=== PATIENT | female | born 1955 | race Caucasian/White ===

== ENCOUNTER 2021-01-06 18:41 | Inpatient (IN) | payer MEDICARE, OTHER ==
[~2021-01-06] VITALS: Ht 160 cm; Wt 97.4 kg
[~2021-01-06 18:41] MED LIST: ASPIRIN CHEWABL81 MG PO; BENTYL 10MG CAP10 MG PO; CELEXA20 MG PO; EFFEXOR 25 MG T25 MG PO; FEOSOL325 MG PO; FISH OIL 1,0001 EAC1 PO; GLUCOPHAGE XR500 MG PO; K-DUR TAB 10 M10 MEQ PO; LOPRESSOR 25 MG25 MG PO; MAGOX 400400 MG PO; NEURONTIN 300300 MG PO; NORFLEX 100 MG100 MG PO; OMEPRAZOLE20 MG PO; PHENERGAN 12.12.5 M1 PO; TOPAMAX50 MG PO; Voltaren Gel 1% TOP; ZANAFLEX4 MG PO; ZOCOR40 MG PO
[2021-01-06 19:27] LABS: HEMOGLOBIN 14.1 gm/dl (12.3-15.3); RED BLOOD COUNT 4.64 M/UL (4.00-5.10); WHITE BLOOD COUNT 8.4 K/UL (4.5-11.0)
[2021-01-06 20:32] LABS: BUN/CREATININE RATIO 27 (0-10)
[2021-01-07] MEDS ORDERED: MOBIC7.5 MG PO (01:28)
[2021-01-07] MEDS ORDERED: PROTONIX 40 MG40 M1 PO (01:29)
[2021-01-07] MEDS ORDERED: ONDANSETRON HCL8 MG PO (01:30)
[2021-01-07] MEDS ORDERED: ROPINIROLE HCL1 MG PO (01:31)
[2021-01-07] MEDS ORDERED: BANOPHEN25 M1 PO (01:33)
[2021-01-07] MEDS ORDERED: MI-ACID80 MG PO (01:35)
[2021-01-07] MEDS ORDERED: GLUCOTROL 10 MG10 MG PO (01:38)
[2021-01-07] MEDS ORDERED: VENLAFAXINE HCL50 MG PO (01:41)
[2021-01-07] MEDS ORDERED: TRULICITY1.5 MG/0.5 SQ (01:42)
[2021-01-07] MEDS ORDERED: GABAPENTIN800 MG PO (01:43)
[2021-01-07] MEDS ORDERED: LINZESS290 MCG PO (01:44)
[2021-01-07 05:51] LABS: HEMOGLOBIN 12.4 gm/dl (12.3-15.3)
[2021-01-07 05:53] LABS: RED BLOOD COUNT 4.09 M/UL (4.00-5.10); WHITE BLOOD COUNT 5.2 K/UL (4.5-11.0)
[2021-01-07 06:34] LABS: BUN/CREATININE RATIO 32 (0-10)
[2021-01-08 09:36] LABS: BUN/CREATININE RATIO 33 (0-10)
[2021-01-08 10:54] LABS: HEMOGLOBIN 11.2 gm/dl (12.3-15.3); RED BLOOD COUNT 3.82 M/UL (4.00-5.10)
[2021-01-08 10:55] LABS: WHITE BLOOD COUNT 11.6 K/UL (4.5-11.0)
[2021-01-09 08:34] LABS: HEMOGLOBIN 12.1 gm/dl (12.3-15.3); RED BLOOD COUNT 4.03 M/UL (4.00-5.10); WHITE BLOOD COUNT 12.6 K/UL (4.5-11.0)
[2021-01-09 08:58] LABS: BUN/CREATININE RATIO 47 (0-10)
--- NOTE | 2021-01-10 02:35 | NUR ---
01-10-21 DR. CORDERO WAS NOTIFIED OF PT'S SATS STAYING IN THE 80'S DESPITE BEING ON 100 PERCENT ON BIPAP. ABG WAS OBTAINED WELL AND THOSE RESULTS WERE RELAYED TO DR. Mahoney AT TIME OF PHONE CALL. ORDERED SOME CHANGES REGARGING BIPAP SETTINGS BUT SAID IF PT'S SAT DOES NOT IMPROVE AFTER THEN HAVE ER DOC COME TO INTUBATE. AT APPROX 0115 ANOTHER ABG WAS OBTAINED, AND THE DECISION WAS MADE TO GO AHEAD WITH THE INBUTAION. ER DOC WAS CALLED, ARRIVED AT APPROX 0130 TO INTUBATE. SEE MAR FOR FURTHER DETAILS ON MEDS ADMINISTERED DURING PROCEDURE. 01-10-[address] CORDERO WAS NOTIFIED AGAIN REGARDING FURTHER ORDERS FOR SEDATION FOLLOWING INTUBATION. SEE EMAR FOR DETAILS. 01-10-21 023 ATTEMPTED TO CALL PT'S EMERGENCY CONTACT (JULIAN) TO UPDATE HER ON PT'S CONDITION. NO ANSWER, BUT VOICEMAIL WAS LEFT.
[2021-01-10 05:31] LABS: HEMOGLOBIN 14.3 gm/dl (12.3-15.3); RED BLOOD COUNT 4.9 M/UL (4.00-5.10); WHITE BLOOD COUNT 21.1 K/UL (4.5-11.0)
[2021-01-11 04:01] LABS: RED BLOOD COUNT 4.45 M/UL (4.00-5.10); WHITE BLOOD COUNT 20.1 K/UL (4.5-11.0)
[2021-01-12 05:45] LABS: HEMOGLOBIN 12.3 gm/dl (12.3-15.3); RED BLOOD COUNT 4.22 M/UL (4.00-5.10); WHITE BLOOD COUNT 24.6 K/UL (4.5-11.0)
[2021-01-12 11:06] LABS: HEMOGLOBIN 12.7 gm/dl (12.3-15.3); RED BLOOD COUNT 4.45 M/UL (4.00-5.10); WHITE BLOOD COUNT 27.6 K/UL (4.5-11.0)
[2021-01-13 06:57] LABS: HEMOGLOBIN 11.2 gm/dl (12.3-15.3)
[2021-01-13 08:05] LABS: RED BLOOD COUNT 3.79 M/UL (4.00-5.10); WHITE BLOOD COUNT 26.7 K/UL (4.5-11.0)
[2021-01-14 05:36] LABS: RED BLOOD COUNT 3.8 M/UL (4.00-5.10); WHITE BLOOD COUNT 26.1 K/UL (4.5-11.0)
[2021-01-15 05:34] LABS: HEMOGLOBIN 9.7 gm/dl (12.3-15.3)
[2021-01-15 05:36] LABS: RED BLOOD COUNT 3.24 M/UL (4.00-5.10); WHITE BLOOD COUNT 17.4 K/UL (4.5-11.0)
[2021-01-15 12:14] LABS: HBSAG SCREEN Negative (Negative); HEP A AB, IGM Negative (Negative); HEP B CORE AB, IGM Negative (Negative); HEP C VIRUS AB <0.1 (0.0-0.9)
[2021-01-15 17:59] LABS: HEMOGLOBIN 9.7 gm/dl (12.3-15.3); RED BLOOD COUNT 3.26 M/UL (4.00-5.10); WHITE BLOOD COUNT 18.1 K/UL (4.5-11.0)
[2021-01-16 05:24] LABS: HEMOGLOBIN 9.2 gm/dl (12.3-15.3); RED BLOOD COUNT 3.11 M/UL (4.00-5.10); WHITE BLOOD COUNT 19.9 K/UL (4.5-11.0)
[2021-01-17 04:33] LABS: HEMOGLOBIN 8.8 gm/dl (12.3-15.3); RED BLOOD COUNT 3.03 M/UL (4.00-5.10); WHITE BLOOD COUNT 22.2 K/UL (4.5-11.0)
[2021-01-18 04:35] LABS: HEMOGLOBIN 8.3 gm/dl (12.3-15.3); RED BLOOD COUNT 2.79 M/UL (4.00-5.10); WHITE BLOOD COUNT 18.4 K/UL (4.5-11.0)
[2021-01-19 05:25] LABS: HEMOGLOBIN 9.3 gm/dl (12.3-15.3)
[2021-01-19 05:33] LABS: RED BLOOD COUNT 3.1 M/UL (4.00-5.10); WHITE BLOOD COUNT 25.1 K/UL (4.5-11.0)
--- NOTE | 2021-01-19 19:05 | NUR ---
01/19 1700 PT RECIEVED DIALYSIS TODAY AND WAS ON LEVOPHED, VASOPRESSIN, AND LUANNE. AT 1600 THE PT WENT FROM HR OF [address] GTZ WAS AT BEDSIDE AND DECIDED TO DO A SYNCHRONIZED CARDIOVERSION. AFTER CARDIOVERSION THE PT WAS BACK DOWN TO 110'S. DR. GTZ ORDERED A BOLUS OF 150 AMIO. AND TO START AN AMIO GTT PER PROTOCOL. PT STABLIZED AT THIS TIME DR. GTZ CALLED AND TALKED TO THE DAUGHTER KORIN ABOUT MAKING THE PT A DNR. KORIN TOLD US SHE WOULD NEED TO TALK TO HER DAUGHTER, ERENDIRA RAMSEY ABOUT THIS CHANGE. THE GRANDDAUGHTER CALLED BACK AT 1900 AND DECIDED TO MAKE THE PT A DNR.
[2021-01-20 05:42] LABS: HEMOGLOBIN 7.3 gm/dl (12.3-15.3); RED BLOOD COUNT 2.46 M/UL (4.00-5.10); WHITE BLOOD COUNT 16.4 K/UL (4.5-11.0)
[2021-01-21 04:57] LABS: HEMOGLOBIN 7.6 gm/dl (12.3-15.3); RED BLOOD COUNT 2.56 M/UL (4.00-5.10); WHITE BLOOD COUNT 17.9 K/UL (4.5-11.0)
== END 2021-01-21 20:45 | disposition expired | DRG 207 ==
LOC: ER1 18:41 → CCU 22:52 → CDU 22:52 → CCU 01-07 01:11
PROVIDERS: Family Medicine; Internal Medicine; Internal Medicine Hematology & Oncology; Internal Medicine Nephrology; Internal Medicine Pulmonary Disease; Registered Nurse; ADMIT Internal Medicine
PROC: 3E0333Z Introduction of Anti-inflammatory into Peripheral Vein, Percutaneous Approach (ICD-10-PCS; principal; 2021-01-06)
PROC: 5A09457 Assistance with Respiratory Ventilation, 24-96 Consecutive Hours, Continuous Positive Airway Pressure (ICD-10-PCS; 2021-01-06)
PROC: 8E0ZXY6 Isolation (ICD-10-PCS; 2021-01-07)
PROC: XW033E5 Introduction of Remdesivir Anti-infective into Peripheral Vein, Percutaneous Approach, New Technology Group 5 (ICD-10-PCS; 2021-01-07)
PROC: XW033H5 Introduction of Tocilizumab into Peripheral Vein, Percutaneous Approach, New Technology Group 5 (ICD-10-PCS; 2021-01-07)
PROC: 5A0935A Assistance with Respiratory Ventilation, Less than 24 Consecutive Hours, High Flow/Velocity Cannula (ICD-10-PCS; 2021-01-08)
PROC: 5A1955Z Respiratory Ventilation, Greater than 96 Consecutive Hours (ICD-10-PCS; 2021-01-09)
PROC: 0BH17EZ Insertion of Endotracheal Airway into Trachea, Via Natural or Artificial Opening (ICD-10-PCS; 2021-01-09)
PROC: 02HV33Z Insertion of Infusion Device into Superior Vena Cava, Percutaneous Approach (ICD-10-PCS; 2021-01-10)
PROC: B548ZZA Ultrasonography of Superior Vena Cava, Guidance (ICD-10-PCS; 2021-01-10)
PROC: 3E033XZ Introduction of Vasopressor into Peripheral Vein, Percutaneous Approach (ICD-10-PCS; 2021-01-10)
PROC: 30233M1 Transfusion of Nonautologous Plasma Cryoprecipitate into Peripheral Vein, Percutaneous Approach (ICD-10-PCS; 2021-01-11)
PROC: 02HV33Z Insertion of Infusion Device into Superior Vena Cava, Percutaneous Approach (ICD-10-PCS; 2021-01-13)
PROC: B548ZZA Ultrasonography of Superior Vena Cava, Guidance (ICD-10-PCS; 2021-01-13)
PROC: 5A1D70Z Performance of Urinary Filtration, Intermittent, Less than 6 Hours Per Day (ICD-10-PCS; 2021-01-13)
PROC: B24BZZZ Ultrasonography of Heart with Aorta (ICD-10-PCS; 2021-01-14)
PROC: 5A1D70Z Performance of Urinary Filtration, Intermittent, Less than 6 Hours Per Day (ICD-10-PCS; 2021-01-14)
PROC: 0DH63UZ Insertion of Feeding Device into Stomach, Percutaneous Approach (ICD-10-PCS; 2021-01-15)
PROC: 3E0G76Z Introduction of Nutritional Substance into Upper GI, Via Natural or Artificial Opening (ICD-10-PCS; 2021-01-15)
PROC: 5A1D70Z Performance of Urinary Filtration, Intermittent, Less than 6 Hours Per Day (ICD-10-PCS; 2021-01-16)
PROC: 02HV33Z Insertion of Infusion Device into Superior Vena Cava, Percutaneous Approach (ICD-10-PCS; 2021-01-19)
PROC: B548ZZA Ultrasonography of Superior Vena Cava, Guidance (ICD-10-PCS; 2021-01-19)
PROC: 5A1D70Z Performance of Urinary Filtration, Intermittent, Less than 6 Hours Per Day (ICD-10-PCS; 2021-01-19)
PROC: 5A1D70Z Performance of Urinary Filtration, Intermittent, Less than 6 Hours Per Day (ICD-10-PCS; 2021-01-19)
PROC: 02PYX3Z Removal of Infusion Device from Great Vessel, External Approach (ICD-10-PCS; 2021-01-20)
PROC: 02HV33Z Insertion of Infusion Device into Superior Vena Cava, Percutaneous Approach (ICD-10-PCS; 2021-01-20)
PROC: 5A1D70Z Performance of Urinary Filtration, Intermittent, Less than 6 Hours Per Day (ICD-10-PCS; 2021-01-21)
DX: U07.1 COVID-19 (principal); J80 Acute respiratory distress syndrome; J15.9 Unspecified bacterial pneumonia; N17.0 Acute kidney failure with tubular necrosis; N18.6 End stage renal disease; D65 Disseminated intravascular coagulation [defibrination syndrome]; R65.21 Severe sepsis with septic shock; A41.9 Sepsis, unspecified organism; G92.8 Other toxic encephalopathy; J12.82 Pneumonia due to coronavirus disease 2019; I12.0 Hypertensive chronic kidney disease with stage 5 chronic kidney disease or end stage renal disease; E87.2 Acidosis; E87.1 Hypo-osmolality and hyponatremia; I47.1 Supraventricular tachycardia; E66.2 Morbid (severe) obesity with alveolar hypoventilation; E87.0 Hyperosmolality and hypernatremia; Z66 Do not resuscitate; Z51.5 Encounter for palliative care; E11.43 Type 2 diabetes mellitus with diabetic autonomic (poly)neuropathy; K31.84 Gastroparesis; E11.40 Type 2 diabetes mellitus with diabetic neuropathy, unspecified; F32.A Depression, unspecified; F41.9 Anxiety disorder, unspecified; I10 Essential (primary) hypertension; E11.649 Type 2 diabetes mellitus with hypoglycemia without coma; E11.22 Type 2 diabetes mellitus with diabetic chronic kidney disease; F20.9 Schizophrenia, unspecified; E87.6 Hypokalemia; G25.81 Restless legs syndrome; G89.4 Chronic pain syndrome; K21.9 Gastro-esophageal reflux disease without esophagitis; K58.9 Irritable bowel syndrome, unspecified; E86.0 Dehydration; I48.0 Paroxysmal atrial fibrillation; E11.65 Type 2 diabetes mellitus with hyperglycemia; Z96.653 Presence of artificial knee joint, bilateral; D50.9 Iron deficiency anemia, unspecified; Z96.643 Presence of artificial hip joint, bilateral; H11.30 Conjunctival hemorrhage, unspecified eye; E88.09 Other disorders of plasma-protein metabolism, not elsewhere classified; D63.1 Anemia in chronic kidney disease; H11.33 Conjunctival hemorrhage, bilateral; Z99.2 Dependence on renal dialysis; Z79.4 Long term (current) use of insulin; Z79.01 Long term (current) use of anticoagulants; Z90.710 Acquired absence of both cervix and uterus; Z82.49 Family history of ischemic heart disease and other diseases of the circulatory system; Z88.2 Allergy status to sulfonamides; Z88.5 Allergy status to narcotic agent; Z88.0 Allergy status to penicillin; Z88.8 Allergy status to other drugs, medicaments and biological substances; Z79.82 Long term (current) use of aspirin; Z79.899 Other long term (current) drug therapy; Z68.32 Body mass index [BMI] 32.0-32.9, adult; Z23 Encounter for immunization
CPT/HCPCS: ECHO; 31500; 36415; 36430; 36600; 70450; 71045; 80048; 80053; 80061; 80074; 81001; 82009; 82533; 82550; 82553; 82728; 82746; 82803; 82962; 83036; 83605; 83615; 83735; 83874; 83880; 84100; 84132; 84439; 84443; 84484; 84550; 85025; 85027; 85379; 85384; 85610; 85730; 86140; 86850; 86900; 86901; 87040; 87070; 87081; 87205; 90935; 90937; 93005; 93306; 93970; 94002; 94003; 94640; 94660; 94664; 94760; 96374; 99285; C1751; C1752; C9113; J0282; J0610; J0692; J1100; J1644; J1650; J2060; J2185; J2270; J2370; J2704; J2765; J2997; J3010; J3370; J7030; J7040; J7050; J7070; P9012; P9047; Q0249; Q9967; U0002